=== PATIENT | female | born 1970 | race Caucasian/White ===

== ENCOUNTER 2016-07-22 20:17 | Emergency (ER) | payer MEDICAID ==
[~2016-07-22 20:17] MED LIST: predniSONE 20 MG TAB PO SCH
[2016-07-22 20:29] VITALS: BP 140/88; PULSE 97; RESP 18; TEMP 98.2; O2SAT 93
[2016-07-22] MEDS ORDERED: ALBUTEROL 3 ML DEYVIAL ONE (20:52)
--- NOTE | 2016-07-22 20:56 | EDPHY ---
H & P Stated Complaint: cough x 3 weeks Time Seen by Provider: 07/22/16 20:44 HPI/ROS: CHIEF COMPLAINT: 3 week history of cough HISTORY OF PRESENT ILLNESS: The patient presents to the emergency department with a 3 week history of a cough. The patient has remote history of asthma and is currently homeless. She has been out of her albuterol inhaler for some time. The patient has no history of recent hospitalization for steroid use. The patient denies fever and has had a dry nonproductive cough. She denies vomiting or diarrhea. The patient denies pleuritic chest pain. The patient has no complaints of asymmetric calf pain or swelling. The patient takes no regular medications aside from albuterol. She has no regular primary care. REVIEW OF SYSTEMS: A comprehensive 10 point review of systems is otherwise negative aside from elements mentioned in the history of present illness. Source: Patient Exam Limitations: No limitations - Personal History LMP (Females 10-55): 15-21 Days Ago Current Tetanus/Diphtheria Vaccine: Unsure Current Tetanus Diphtheria and Acellular Pertussis (TDAP): Unsure - Medical/Surgical History Hx Asthma: Yes Hx Chronic Respiratory Disease: No Hx Diabetes: No Hx Cardiac Disease: No Hx Renal Disease: No Hx Cirrhosis: No Hx Alcoholism: No Hx HIV/AIDS: No Hx Splenectomy or Spleen Trauma: No Other PMH: ASTHMA, PNA, MRSA infection, states she had a past CXR that showed "spots on her lungs", degen disc disease lumbar - Social History Smoking Status: Former smoker Alcohol Use: None Drug Use: None - Physical Exam Exam: General Appearance: Alert, no distress Eyes: Pupils equal and round no pallor or injection ENT, Mouth: Mucous membranes moist Respiratory: Scant expiratory wheezing Cardiovascular: Regular rate and rhythm Gastrointestinal: Abdomen is soft and nontender, no masses, bowel sounds normal Neurological: A&O, normal motor function, normal sensory exam, normal cranial nerves Skin: Warm and dry, no rashes Musculoskeletal: Neck is supple nontender Extremities: symmetrical, full range of motion Constitutional: Initial Vital Signs Temperature (C) 36.8 C 07/22/16 20:25 Heart Rate 97 07/22/16 20:25 Respiratory Rate 18 07/22/16 20:25 Blood Pressure 140/88 H 07/22/16 20:25 O2 Sat (%) 93 07/22/16 20:25 O2 Delivery Mode Room Air Allergies/Adverse Reactions: codeine [Codeine] Allergy (Intermediate, Verified 07/24/14 14:02) Home Medications: Medication Instructions Recorded Ipratropium/Albuterol [Duoneb (*)] 3 ml IH Q4 PRN #20 deyvial 04/24/11 Albuterol Sulfate [Albuterol 1 - 2 puffs IH Q4H PRN #1 mdi 07/24/14 Inhaler Hfa] Medical Decision Making - Diagnostics Imaging: Chest x-ray PA lateral: Images reviewed by myself, negative for focal infiltrate, pneumothorax or other acute finding. ED Course/Re-evaluation: The patient presents to the emergency department with 3 weeks of cough. She has a history of asthma and does have scant wheezing noted on exam. The patient 's chest x-ray demonstrates no evidence of pneumonia and she is afebrile. In the emergency department the patient did receive an albuterol nebulizer. We have made arrangements to fill a short course of prednisone for her through the [facility]. The patient will be given an albuterol MDI to take home. I have asked her to follow up with [facility] to establish primary care. The patient has been instructed to return to the ED for markedly worsening symptoms or other concerns. Differential Diagnosis: Differential diagnosis considered includes asthma, bronchitis, pneumonia Departure - Departure Disposition: Home, Routine, Self-Care Clinical Impression: Acute bronchitis Condition: Good Instructions: Bronchospasm (ED) Additional Instructions: 1. Please take prednisone as directed for next 5 days. 2. Use albuterol inhaler up to every 2 hours as needed. 3. Please schedule a follow-up appointment with [facility] to establish primary care. 4. Please return to the ED for markedly worsening symptoms or other concerns. Referrals: [facility] [Outside] - As per Instructions
[2016-07-22] MEDS ORDERED: ALBUTEROL 3 ML DEYVIAL IH ONE (20:58)
[2016-07-22] MEDS ORDERED: ALBUTEROL INH PREPACK MDI TAKEHOME ONE (21:18)
--- NOTE | 2016-07-22 21:34 | DX ---
PA and lateral chest. 07/22/2016. Clinical History: Dyspnea. Comparison Study: April 24, 2011.. Findings: The lungs are clear. No pleural disease identified. Heart size is normal. Mild central bronchial wall thickening is present bilaterally compatible with bronchitis.. Impression: Mild central bronchitis, otherwise negative.
== END 2016-07-22 22:31 | disposition home or self-care (01) ==
DX: J20.9 Acute bronchitis, unspecified (principal); J45.909 Unspecified asthma, uncomplicated; Z87.891 Personal history of nicotine dependence
CPT/HCPCS: J7512

== ENCOUNTER 2017-01-10 13:22 | Emergency (ER) | payer MEDICAID ==
[2017-01-10 13:39] VITALS: BP 130/90; PULSE 88; RESP 18; TEMP 97.7; O2SAT 98
--- NOTE | 2017-01-10 15:09 | EDPHY ---
H & P Time Seen by Provider: 01/10/17 15:00 HPI/ROS: CHIEF COMPLAINT: Chest pain for 3 weeks, a lump under my armpit, my right ear is draining, and I think I have a UTI. HISTORY OF PRESENT ILLNESS: Patient says she has lump under left armpit that is swollen and painful for the last 3 days. She has dysuria and urinary frequency for the last 2 days. She has been having right ear pain with a little bit of weight and serous drainage for the last week. She has been having continuous central sharp chest pain which is worse with coughing for the last 3 weeks. Not exertional or radiating. Not associated with nausea vomiting diaphoresis or arm or neck or jaw symptoms. REVIEW OF SYSTEMS: Eye: no change in vision ENT: no sore throat or dental symptoms, no trouble breathing or swallowing. Cardiac: No syncope. Pulmonary: no cough or SOB Abdomen: no vomiting, diarrhea, abdominal pain Musculoskeletal: No leg swelling or recent trauma or immobilization. Skin: The HPI Neuro: no headache Constitutional: no fever : The HPI, no vaginal discharge or bleeding. Denies . A comprehensive 10 point review of systems is otherwise negative aside from elements mentioned in the history of present illness. PAST MEDICAL HISTORY: No history of DVT or PE. Asthma, MRSA. Colon polyps. Social history: No tobacco or cocaine. Marijuana smoker. General Appearance: Alert and conversant, cooperative. Eyes: No scleral icterus. ENT, Mouth: Left tympanic membrane and canal is normal. Right tympanic membrane is normal but the canal is erythematous with some debris and discharge in it Respiratory: Normal respiratory effort, breath sounds equal, lungs are clear to auscultation. Normal oxygen saturation. No stridor or respiratory distress. No crepitus. Cardiovascular: Regular rate and rhythm. No murmur. Gastrointestinal: Abdomen is soft and non tender. Neurological: Alert and oriented x3. Normally conversant. Face symmetric, normal movement and sensation in all extremities. Skin: Left axilla has fluctuant area 1.5 cm with central redness 5 mm. No lymphangitis and no surrounding redness. Musculoskeletal: No flank pain. Psychiatric: Not agitated. Emergency Department course/MDM: Plan for UA, EKG, I and D of her left axillary abscess. Without acute drainage and no evidence of systemic spread or local cellulitis I think antibiotics would be unnecessary. Right ear antibiotic drops. Her chest pain I think is most likely benign given that she has a normal EKG after 3 continuous weeks of symptoms, presentation unlikely to be dissection or pulmonary embolism or infection or acute coronary syndrome. I think pneumothorax be unlikely as well. Urinalysis unlikely to be bladder infection. Smoking Status: Former smoker Constitutional: Initial Vital Signs Temperature (C) 36.5 C 01/10/17 13:36 Heart Rate 88 01/10/17 13:36 Respiratory Rate 18 01/10/17 13:36 Blood Pressure 130/90 H 01/10/17 13:36 O2 Sat (%) 98 01/10/17 13:36 O2 Delivery Mode Room Air Allergies/Adverse Reactions: codeine [Codeine] Allergy (Intermediate, Verified 07/24/14 14:02) Home Medications: Medication Instructions Recorded Neomy Sulf/Polymyx B Sulf/Hc 2 drops TID 5 Days 01/10/17 [Cortisporin Otic (*)] Medical Decision Making - Diagnostics EKG Interpretation: 12-lead EKG interpreted by me; official reading is in trace master. My interpretation is sinus rhythm, nonspecific T-wave flattening, no acute ST elevation. Procedures: Procedure: Abscess drainage. The patient's abscess was located on the left axilla. I obtained verbal consent from the patient to drain the abscess who was informed about the possibility of bleeding and pain. The area was prepped and draped in the usual sterile fashion, with 0.5% bupivacaine used for local anesthesia. The abscess was incised with a #11 scalpel and a moderate amount of purulent drainage was expressed. I irrigated the wound and placed iodoform packing. The patient tolerated the procedure well. The procedure was performed by myself. - Data Points Laboratory Results: 01/10/17 15:13 Urine RBC 1-3 /hpf /hpf (0-3) Urine WBC 3-5 /hpf H /hpf (0-3) Ur Epithelial Cells TRACE /lpf /lpf (NONE-1+) Urine Mucus TRACE /lpf /lpf (NONE-1+) Medications Given: Discontinued Medications Ibuprofen (Motrin) 600 mg PO EDNOW ONE Stop: 01/10/17 15:44 Last Admin: 01/10/17 16:01 Dose: 600 mg Departure - Departure Disposition: Home, Routine, Self-Care Clinical Impression: Abscess of left axilla Chest pain Qualifiers: Chest pain type: unspecified Qualified Code(s): R07.9 - Chest pain, unspecified Right otitis externa Qualifiers: Otitis externa type: unspecified type Chronicity: acute Qualified Code(s): H60.501 - Unspecified acute noninfective otitis externa, right ear Condition: Good Instructions: Chest Pain (ED), Otitis Externa (ED), Abscess (ED) Additional Instructions: Pull out the packing in 2 days. I think it is unlikely that your chest pain represents a lung or heart problem. Urine testing did not show evidence of bladder infection. Please follow-up with ENT specialist in 2 days if your right ear is not improving. Referrals: [facility],. [Clinic] - As per Instructions Prescriptions: Neomy Sulf/Polymyx B Sulf/Hc [Cortisporin Otic (*)] 2 drops TID 5 Days
[2017-01-10 15:29] LABS: MUCUS TRACE /lpf (NONE-1+)
[2017-01-10] MEDS ORDERED: HYDROmorphONE/DILAUDID 1 MG/ML SYR ONE (15:32)
[2017-01-10] MEDS ORDERED: KETOROLAC 15 MG/1 ML SDV ONE (15:32)
[2017-01-10] MEDS ORDERED: ONDANSETRON 4 MG/2 ML VIAL ONE (15:32)
[2017-01-10] MEDS ORDERED: IBUPROFEN 600 MG TAB PO ONE (15:43)
--- NOTE | 2017-01-10 15:45 | CPEKG ---
Heart Rate: 69 RR Interval: 870 P-R Interval: 136 QRSD Interval: 90 QT Interval: 412 QTC Interval: 442 P [place]: 67 QRS [place]: 24 T Wave [place]: 5 EKG Severity - BORDERLINE ECG - EKG Impression: SINUS RHYTHM EKG Impression: BORDERLINE T ABNORMALITIES, DIFFUSE LEADS Electronically Signed By: Alex Perez 10-Jan-2017 15:49:00
== END 2017-01-10 16:00 | disposition home or self-care (01) ==
PROC: 0H9CXZZ Drainage of Left Upper Arm Skin, External Approach (ICD-10-PCS; principal; 2017-01-10)
DX: R07.9 Chest pain, unspecified (principal); H60.501 Unspecified acute noninfective otitis externa, right ear; L02.412 Cutaneous abscess of left axilla; J45.909 Unspecified asthma, uncomplicated; Z87.891 Personal history of nicotine dependence
CPT/HCPCS: J1170; J1885; J2405

== ENCOUNTER → 2017-03-25 | Outpatient (CLI) | payer MEDICAID | LOC: FIMAGING 09:21 → EDSTATUS 09:22 | DX: Z11.1 Encounter for screening for respiratory tuberculosis (principal); R76.11 Nonspecific reaction to tuberculin skin test without active tuberculosis ==

== ENCOUNTER 2017-07-20 17:25 | Emergency (ER) | payer MEDICAID ==
[2017-07-20 18:00] VITALS: TEMP 99.1
[2017-07-20] MEDS ORDERED: PROPARACAINE 0.5% 15 ML OPHT DROP OP ONE (18:03)
[2017-07-20] MEDS ORDERED: FLUORESCEIN SODIUM 1 MG STRIP OP ONE (18:03)
--- NOTE | 2017-07-20 18:03 | EDPHY ---
General Narrative: CHIEF COMPLAINT: Head injury, eye pain HISTORY OF PRESENT ILLNESS: Patient complains of head injury x2 yesterday. She was packing items into her car when it she struck her left eye on the handle of the rolling suitcase. She felt a sudden onset of pain that was mild and then went away. Within 5 min she said she vigorously struck her head on the car accidentally. She did not lose consciousness. She does have a mild headache from this. No nausea or vomiting. She has poor recollection of the details of the event. No neck pain or stiffness. No injury elsewhere. No other associated complaints or modifying factors. REVIEW OF SYSTEMS: Ten systems reviewed and are negative unless otherwise noted in the HPI PCP: Linda. Looking for new physician SPECIALISTS: [facility] PAST MEDICAL HISTORY: Possible diagnosis of depression. MRSA facial infection, asthma, colon polyps, closed head injuries x2 PAST SURGICAL HISTORY: No recent surgeries. SOCIAL HISTORY: Nonsmoker. Occasional marijuana use. Currently unemployed. FAMILY HISTORY: Noncontributory EXAMINATION General Appearance: Alert, no distress Head: normocephalic. Left lower eyelid ecchymosis. No Wood sign. No depression or deformity. Eyes: Pupils equal and round, no conjunctival pallor or injection. EOMs intact. No hyphema or subconjunctival hemorrhage. Fluorescein exam: No uptake. No foreign body. ENT, Mouth: Mucous membranes moist Neck: Normal inspection, supple, non-tender Respiratory: Lungs are clear to auscultation Cardiovascular: Regular rate and rhythm no murmur Gastrointestinal: Abdomen is soft and nontender Back: non-tender, no bony abnormalities Neurological: GCS 15. Cranial nerves 2-12 grossly intact A&O, nonfocal, normal gait. No pronator drift. Normal finger to nose. Skin: Warm and dry, no rash. Ecchymosis above. No laceration Extremities: Nontender, no pedal edema Psychiatric: Mood and affect normal DIFFERENTIAL DIAGNOSES: Including but not limited to closed head injury, intracranial hemorrhage, maxillary fracture, globe injury, corneal abrasion, conjunctival abrasion MDM: 6:05 p.m. Two closed head injury incidence yesterday evening. She does have left lower eyelid ecchymosis but no raccoon eyes or Wood sign. She is awake and alert in no acute distress. She is somewhat amnestic to event. I have ordered CT scan of the head. I will perform a fluorescein examination of the eye. 6:28 p.m. Notified by radiologist Dr. Lawler. CT scan of the head is unremarkable for acute findings. 6:45 p.m. Patient re-evaluated. I performed a forcing exam of the left eye. There is no uptake in any location. No foreign body. Lid was everted. Globe is intact with normal visual rodgers by confrontation. I will discharge her home with the on-call primary care physician and the concussion specialist. We discussed ED precautions. We discussed ice and anti-inflammatories. She is comfortable this plan and discharged home stable condition. SUPERVISION: Patient was independently examined, but I discussed the case with my secondary supervising physician Dr. Burks - Diagnostics Imaging Results: Imaging Impressions Head CT 07/20/17 18:03 Impression: No acute posttraumatic abnormality identified. Results called to Chuck Crowe at 6:30 PM General information for patients regarding this examination can be found at [email or web address] If you have questions or comments about this report, please contact me at [phone](hospital) or [phone] (cell). - History Smoking Status: Former smoker - Objective Vital Signs: Initial Vital Signs Temperature (C) 99.1 F 07/20/17 17:30 Heart Rate 97 07/20/17 17:30 Respiratory Rate 18 07/20/17 17:30 Blood Pressure 152/86 H 07/20/17 17:30 O2 Sat (%) 95 07/20/17 17:30 O2 Delivery Mode Room Air Allergies/Adverse Reactions: codeine [Codeine] Allergy (Intermediate, Verified 07/24/14 14:02) Home Medications: Medication Instructions Recorded Albuterol 07/20/17 Erythromycin 0.5% 1 anjum OP TID #1 opht.oint 07/20/17 Prozac 10 MG (*) 07/20/17 Medications Given: Discontinued Medications Fluorescein Sodium ([id number]) 1 mg OP EDNOW ONE Stop: 07/20/17 18:04 Last Admin: 07/20/17 18:25 Dose: 1 mg Proparacaine HCl (Alcaine 0.5%) 1 drops OP EDNOW ONE Stop: 07/20/17 18:04 Last Admin: 07/20/17 18:25 Dose: 1 btl Departure - Departure Disposition: Home, Routine, Self-Care Clinical Impression: Pain, eye, left Closed head injury Qualifiers: Encounter type: initial encounter Qualified Code(s): S09.90XA - Unspecified injury of head, initial encounter Instructions: Concussion (ED), Head Injury (ED) Additional Instructions: 1. Erythromycin ointment the left eye as prescribed for 5-7 days 2. Contact the on-call primary care physician Dr. Barney to establish as a new patient 3. Contact the concussion specialist Dr. Mccall for outpatient care 4. Contact the on-call mammal control agent Dr. Byrd as needed 5. ED precautions as discussed Referrals: Inocencia Barney MD [Medical Doctor] - As per Instructions Raudel Byrd MD [Medical Doctor] - As per Instructions Lupe Mccall MD [Medical Doctor] - As per Instructions Prescriptions: Erythromycin 0.5% 1 anjum OP TID #1 opht.oint
[2017-07-20 19:04] VITALS: BP 155/66; PULSE 71; RESP 16; O2SAT 98
== END 2017-07-20 19:04 | disposition home or self-care (01) ==
DX: S09.90XA Unspecified injury of head, initial encounter (principal); S05.92XA Unspecified injury of left eye and orbit, initial encounter; J45.909 Unspecified asthma, uncomplicated; Z87.891 Personal history of nicotine dependence; W22.8XXA Striking against or struck by other objects, initial encounter; Y93.89 Activity, other specified